=== PATIENT | female | born 1935 | race Caucasian/White ===

== ENCOUNTER 2017-06-14 11:38 | Observation (INO) | payer OTHER ==
--- NOTE | 2017-06-14 12:12 | PDOC ---
History of Present Illness - General History Source: Patient Exam Limitations: No Limitations - History of Present Illness Initial Comments: 06/14/17 12:33 81 y/o F presents with lightheadedness and hypertension for one day. 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 She states that she was in her home yesterday when she began to feel dizzy and elevated BP (158/78). She is currently complaining of feeling dizzy and weak. She states that she had a similar episode in February 2017 and was found to have low Hgb and required a transfusion and is contributing these current symptoms to her previous episode. This episode started gradually and there was no trauma or injury. She states that getting up worsens her symptoms and massages her neck makes it better. She did not take any medication. She denies any numbness, tingling, chest pain, SOB, abdominal pain, n/v/d. 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, causing Meylofibrosis - Psycho/Social/Smoking Cessation Hx Suicidal Ideation: No Smoking History: Never smoked Hx Alcohol Use: (former) <Richard Del Rio - Last Filed: 06/14/17 14:09> <Jerad Hauser - Last Filed: 06/14/17 14:50> - Past Medical History Allergies/Adverse Reactions: Allergies Allergy/AdvReac Type Severity Reaction Status Date / Time Penicillins Allergy Verified 06/14/17 11:46 Sulfa (Sulfonamide Allergy Verified 06/14/17 11:46 Antibiotics) Home Medications: Ambulatory Orders Danazol [Danocrine -] 200 mg PO DAILY 06/14/17 Hydroxyurea [Hydrea] 500 mg PO DAILY 06/14/17 Review of Systems - Review of Systems Constitutional: Yes: Weakness. No: Chills, Fever HEENTM: No: Blurred Vision, Double Vision Respiratory: No: Cough, Shortness of Breath Cardiac (ROS): No: Chest Pain, Palpitations ABD/GI: No: Nausea, Vomiting Musculoskeletal: No: Muscle Weakness Neurological: Yes: Dizziness. No: Headache, Numbness, Unsteady Gait All Other Systems: Reviewed and Negative <Richard Del Rio - Last Filed: 06/14/17 14:09> *Physical Exam - Vital Signs Last Vital Signs Temp Pulse Resp BP Pulse Ox 97.8 F 84 18 138/70 98 06/14/17 11:38 06/14/17 11:38 06/14/17 11:38 06/14/17 11:38 06/14/17 11:38 - Physical Exam General Appearance: Yes: Nourished, Appropriately Dressed. No: Apparent Distress HEENT: positive: EOMI, EMY, Normal ENT Inspection Neck: positive: Trachea midline, Supple Respiratory/Chest: positive: Lungs Clear, Normal Breath Sounds Cardiovascular: positive: Regular Rhythm, Regular Rate Vascular Pulses: Dorsalis-Pedis (R): 2+, Doralis-Pedis (L): 2+ Gastrointestinal/Abdominal: positive: Normal Bowel Sounds. negative: Tender, Distended, Guarding, Rebound Musculoskeletal: positive: Normal Inspection. negative: Decreased Range of Motion Extremity: positive: Normal Range of Motion. negative: Tender, Swelling, Calf Tenderness Integumentary: positive: Normal Color, Dry, Warm Neurologic: positive: dumper II-XII NML intact, Fully Oriented, Alert, Normal Mood/ Affect, Normal Response, Motor Strength 5/5 <Richard Del Rio - Last Filed: 06/14/17 14:09> - Vital Signs Last Vital Signs Temp Pulse Resp BP Pulse Ox 97.8 F 84 18 138/70 98 06/14/17 11:38 06/14/17 11:38 06/14/17 11:38 06/14/17 11:38 06/14/17 11:38 <Jerad Hauser - Last Filed: 06/14/17 14:50> ED Treatment Course - LABORATORY CBC & Chemistry Diagram: 06/14/17 12:30 06/14/17 12:30 <Richard Del Rio - Last Filed: 06/14/17 14:09> - LABORATORY CBC & Chemistry Diagram: 06/14/17 12:30 06/14/17 12:30 - ADDITIONAL ORDERS Additional order review: Laboratory Results 06/14/17 06/14/17 06/14/17 14:00 12:32 12:30 INR Sodium Potassium Chloride Carbon Dioxide Anion Gap BUN Creatinine Creat Clearance w eGFR Random Glucose Calcium Total Bilirubin AST ALT Alkaline Phosphatase Creatine Kinase 34 Troponin I < 0.03 L B-Natriuretic Peptide Total Protein Albumin Urine Color Yellow Urine Appearance Clear Urine pH 6.0 Ur Specific [place] 1.020 Urine Protein 1+ H Urine Glucose (UA) Negative Urine Ketones Negative Urine Blood Trace-intact H Urine Nitrite Negative Urine Bilirubin Negative Urine Urobilinogen 0.2 Ur Leukocyte Esterase Negative Crossmatch See Detail 06/14/17 06/14/17 06/14/17 12:30 12:30 12:30 INR 1.32 H Sodium 137 Potassium 4.5 Chloride 104 Carbon Dioxide 26 Anion Gap 7 L BUN 25 H Creatinine 0.6 Creat Clearance w eGFR > 60 Random Glucose 90 Calcium 9.3 Total Bilirubin 2.2 H AST 30 ALT 17 Alkaline Phosphatase 59 Creatine Kinase Troponin I B-Natriuretic Peptide 1096.53 H Total Protein 6.8 Albumin 4.1 Urine Color Urine Appearance Urine pH Ur Specific [place] Urine Protein Urine Glucose (UA) Urine Ketones Urine Blood Urine Nitrite Urine Bilirubin Urine Urobilinogen Ur Leukocyte Esterase Crossmatch 06/14/17 12:30 RBC 2.92 L MCV 87.6 MCHC 31.8 L RDW 30.6 H MPV 7.8 Neutrophils % Y Lymphocytes % Y <Jerad Hauser - Last Filed: 06/14/17 14:50> Medical Decision Making - Medical Decision Making 06/14/17 12:48 81 y/o F with lightheadedness and HTN x 1 day CBC, CMP, PT/PTT, UA EKG, CT Head, CXR r/o electrolytes imbalance, low Hgb, TIA, intracrainal bleed 06/14/17 12:52 <Richard Del Rio - Last Filed: 06/14/17 14:09> - Medical Decision Making 06/14/17 14:15 Per records from [facility] in [place](April 05, 2017): Dr Oren Orr (Phone #: [phone]) Pt is DIAMOND II positive ET (2006) 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 Current Rx: (1) Hydroxyurea 500 g/d- (Acceptable PC <600,000) (2) Danazol 200 mg (mu/day) anemia <9.0 gm/dl. She refused. Procrit or Epogen, or JAKAFI (oct. Hb). (3) Tolerates Hbz 8 gm, Hct >/=25% But may require RBC transf. Requires monthly CBC, CMP- F/u Jun 2017. <Jerad Hauser - Last Filed: 06/14/17 14:50> *DC/Admit/Observation/Transfer - Discharge Dispostion Admit: Yes <Richard Del Rio - Last Filed: 06/14/17 14:09> - Attestations Scribe Attestion: 06/14/17 14:16 Documentation prepared by Jerad Hauser, acting as emergency medical technician for Richard Del Rio DO. <Jerad Hauser - Last Filed: 06/14/17 14:50> Diagnosis at time of Disposition: Myeloproliferative disease, Dizziness, Lightheadedness Leukocytosis (leucocytosis) Qualifiers: Leukocytosis type: unspecified Qualified Code(s): D72.829 - Elevated white blood cell count, unspecified Profound anemia Qualifiers: Anemia type: unspecified type Qualified Code(s): D64.9 - Anemia, unspecified - Discharge Dispostion Condition at time of disposition: Stable
[2017-06-14 12:59] LABS: INR 1.32 (0.82-1.09); PROTHROMBIN TIME (PATIENT) 14.7 SEC (10.2-13.0)
[2017-06-14 13:01] LABS: MCH 27.8 pg (25.7-33.7); MCHC 31.8 g/dl (32.0-36.0); MEAN CELL VOLUME 87.6 fl (80-96); MEAN PLT VOLUME 7.8 fl (7.5-11.1); PLATELET COUNT 249 K/MM3 (134-434); RDW 30.6 % (11.6-15.6); WHITE BLOOD COUNT 22.5 K/mm3 (4.0-10.8)
[2017-06-14 13:28] LABS: ALBUMIN 4.1 g/dl (3.5-5.0); ALK PHOS 59 U/L (32-92); ANION GAP 7 (8-16); BILIRUBIN,TOTAL 2.2 mg/dl (0.2-1.0); CALCIUM 9.3 mg/dl (8.4-10.2); CO2 26 mmol/L (22-28); CREATININE 0.6 mg/dl (0.6-1.3); GLUCOSE,RANDOM 90 mg/dl (74-106); SGOT/AST 30 U/L (10-42); SGPT/ALT 17 U/L (10-40); TOT PROT 6.8 g/dl (6.4-8.3)
[2017-06-14 13:29] LABS: CPK 34 IU/L (26-192)
[2017-06-14 13:38] LABS: TROPONIN I (DFP) < 0.03 ng/ml (0.03-0.50)
[2017-06-14 14:09] LABS: URINE APPEARANCE Clear; URINE BILIRUBIN Negative (NEGATIVE); URINE GLUCOSE (UA) Negative (NEGATIVE); URINE KETONE Negative (NEGATIVE); URINE LEUK ESTERASE Negative (NEGATIVE); URINE NITRITE Negative (NEGATIVE); URINE UROBILINOGEN 0.2 (0.2-1.0)
[2017-06-14 14:13] LABS: URINE BLOOD Trace-intact (NEGATIVE); URINE COLOR YELLOW; URINE PROTEIN 1+ (NEGATIVE)
[2017-06-14 15:21] LABS: URINE AMORPHOUS SEDIMENT 1; URINE WBC 0-2 (3-5)
[2017-06-14 15:43] LABS: ANISOCYTOSIS 2+; HYPOCHROMIA 2+; POIKILOCYTOSIS 2+; POLYCHROMASIA 1+
[2017-06-14 15:44] LABS: MICROCYTOSIS 1+; OVALOCYTES 2+; PLATELET ESTIMATE ADEQUATE (NORMAL); SCHISTOCYTES OCC; TEAR DROP CELLS 2+
[2017-06-14 15:45] LABS: PLATELET COMMENT2 MOD LARGE PLTS
[2017-06-14 15:51] LABS: TARGET CELLS 1+
[2017-06-14 18:48] VITALS: BMI 21.2
[2017-06-14 21:54] LABS: URINE APPEARANCE Clear; URINE BILIRUBIN Negative (NEGATIVE); URINE BLOOD Negative (NEGATIVE); URINE GLUCOSE (UA) Negative (NEGATIVE); URINE KETONE Negative (NEGATIVE); URINE LEUK ESTERASE Negative (NEGATIVE); URINE NITRITE Negative (NEGATIVE); URINE PROTEIN Negative (NEGATIVE)
[2017-06-14 21:55] LABS: URINE COLOR YELLOW
--- NOTE | 2017-06-14 22:06 | HP ---
CHIEF COMPLAINT: lightheadedness PCP: In [facility]: Dr Oren Orr (Phone #: [phone]) HISTORY OF PRESENT ILLNESS: This is an 81 year old female with a past medical history of myelofibrosis (DIAMOND II mutation) who presented to the ED with lightheadedness since yesterday with elevated BP. She states that in the past when she felt this way, she needed a transfusion. ER course was notable for: (1) Hgb 8.1 (2) BUN 25 (3) CT head unremarkable Recent Travel: from [place] (where she lives) to here on 05/26/17 PAST MEDICAL HISTORY: myelofibrosis/DIAMOND II mutation PAST SURGICAL HISTORY: partial knee replacement tonsillectomy age 10 hysterectomy-fibroids Social History: Smoking: pt denies Alcohol: pt denies Drugs: pt denies Family History: Mom age 95, no medical problems dad age 62, cirrhosis due to ETOH no children Allergies Penicillins Allergy (Verified 06/14/17 11:46) Sulfa (Sulfonamide Antibiotics) Allergy (Verified 06/14/17 11:46) HOME MEDICATIONS: 3 Medication Instructions Recorded Danazol [Danocrine -] 200 mg PO DAILY 06/14/17 Hydroxyurea [Hydrea] 500 mg PO DAILY 06/14/17 ASA 81mg Folic acid REVIEW OF SYSTEMS CONSTITUTIONAL: Present: generalized weakness, malaise Absent: fever, chills, diaphoresis, loss of appetite, weight change HEENT: Absent: rhinorrhea, nasal congestion, throat pain, throat swelling, difficulty swallowing, mouth swelling, ear pain, eye pain, visual changes CARDIOVASCULAR: Absent: chest pain, syncope, palpitations, irregular heart rate, lightheadedness , peripheral edema RESPIRATORY: Absent: cough, shortness of breath, dyspnea with exertion, orthopnea, wheezing, stridor, hemoptysis GASTROINTESTINAL: Absent: abdominal pain, abdominal distension, nausea, vomiting, diarrhea, constipation, melena, hematochezia GENITOURINARY: Absent: dysuria, frequency, urgency, hesitancy, hematuria, flank pain, genital pain MUSCULOSKELETAL: Absent: myalgia, arthralgia, joint swelling, back pain, neck pain SKIN: Absent: rash, itching, pallor HEMATOLOGIC/IMMUNOLOGIC: Absent: easy bleeding, easy bruising, lymphadenopathy, frequent infections ENDOCRINE: Absent: unexplained weight gain, unexplained weight loss, heat intolerance, cold intolerance NEUROLOGIC: Present: dizziness Absent: headache, focal weakness or paresthesias, unsteady gait, seizure, mental status changes, bladder or bowel incontinence PSYCHIATRIC: Absent: anxiety, depression, suicidal or homicidal ideation, hallucinations. PHYSICAL EXAMINATION Vital Signs - 24 hr 3 06/14/17 06/14/17 06/14/17 17:30 18:06 18:42 Temperature 98.1 F 98.8 F 98.8 F Pulse Rate 78 78 Pulse Rate [ 98 H Left Apical] Respiratory 16 18 18 Rate Blood Pressure 115/42 115/42 Blood Pressure 132/65 [Right Arm] O2 Sat by Pulse 97 99 Oximetry (%) GENERAL: Awake, alert, and fully oriented, in no acute distress. HEAD: Normal with no signs of trauma. EYES: Pupils equal, round and reactive to light, extraocular movements intact, sclera anicteric, conjunctiva clear, slightly pale. No lid lag. EARS, NOSE, THROAT: Ears normal, nares patent, oropharynx clear without exudates. Moist mucous membranes. NECK: Normal range of motion, supple without lymphadenopathy, JVD, or masses. LUNGS: Breath sounds equal, clear to auscultation bilaterally. No wheezes, and no crackles. No accessory muscle use. HEART: Regular rate and rhythm, normal S1 and S2 without murmur, rub or gallop. ABDOMEN: Soft, nontender, not distended, normoactive bowel sounds, no guarding, no rebound, no masses. No hepatomegaly or splenomegaly. MUSCULOSKELETAL: Normal range of motion at all joints. No bony deformities or tenderness. No CVA tenderness. UPPER EXTREMITIES: 2+ pulses, warm, well-perfused. No cyanosis. No clubbing. No peripheral edema. LOWER EXTREMITIES: 2+ pulses, warm, well-perfused. No calf tenderness. No peripheral edema. NEUROLOGICAL: Cranial nerves II-XII intact. Normal speech. Normal gait. PSYCHIATRIC: Cooperative. Good eye contact. Appropriate mood and affect. SKIN: Warm, dry, normal turgor, no rashes or lesions noted, normal capillary refill. Laboratory Results - last 24 hr 3 06/14/17 06/14/17 06/14/17 06/14/17 12:30 12:30 12:30 12:57 WBC 22.5 H RBC 2.92 L Hgb 8.1 L Hct 25.6 L MCV 87.6 MCH 27.8 MCHC 31.8 L RDW 30.6 H Plt Count 249 MPV 7.8 Neutrophils % Y Lymphocytes % Y Differential Comment Slide scanned Platelet Estimate Adequate Platelet Comment Mod large plts RBC Morphology Y Polychromasia 1+ Hypochromic-Microcytic 2+ Poikilocytosis 2+ Basophilic Stippling 1+ Anisocytosis 2+ Microcytosis 1+ Target Cells 1+ Tear Drop Cells 2+ Ovalocytes 2+ Schistocytes Occ INR 1.32 H Sodium 137 Potassium 4.5 Chloride 104 Carbon Dioxide 26 Anion Gap 7 L BUN 25 H Creatinine 0.6 Creat Clearance w eGFR > 60 Random Glucose 90 Calcium 9.3 Total Bilirubin 2.2 H AST 30 ALT 17 Alkaline Phosphatase 59 LD Total 461 H Creatine Kinase 34 Troponin I < 0.03 L B-Natriuretic Peptide 1096.53 H Total Protein 6.8 Albumin 4.1 Urine Color Urine Appearance Urine pH Ur Specific [place] Urine Protein Urine Glucose (UA) Urine Ketones Urine Blood Urine Nitrite Urine Bilirubin Urine Urobilinogen Ur Leukocyte Esterase Urine RBC Urine WBC Ur Epithelial Cells Amorphous Sediment Blood Type O POSITIVE Antibody Screen Negative Crossmatch See Detail 3 06/14/17 06/14/17 06/14/17 18:30 21:00 22:00 WBC 23.8 H RBC 3.30 L Hgb 9.5 L D Hct 29.1 L MCV 88.3 MCH 28.7 MCHC 32.5 RDW 25.9 H Plt Count 256 MPV 8.1 Neutrophils % Lymphocytes % Differential Comment Platelet Estimate Platelet Comment RBC Morphology Polychromasia Hypochromic-Microcytic Poikilocytosis Basophilic Stippling Anisocytosis Microcytosis Target Cells Tear Drop Cells Ovalocytes Schistocytes INR Sodium Potassium Chloride Carbon Dioxide Anion Gap BUN Creatinine Creat Clearance w eGFR Random Glucose Calcium Total Bilirubin AST ALT Alkaline Phosphatase LD Total Creatine Kinase Troponin I 0.00 B-Natriuretic Peptide Total Protein Albumin Urine Color Yellow Urine Appearance Clear Urine pH 7.0 Ur Specific [place] 1.015 Urine Protein Negative Urine Glucose (UA) Negative Urine Ketones Negative Urine Blood Negative Urine Nitrite Negative Urine Bilirubin Negative Urine Urobilinogen 1.0 Ur Leukocyte Esterase Negative Urine RBC Urine WBC Ur Epithelial Cells Amorphous Sediment Blood Type Antibody Screen Crossmatch Radiology Results HEAD CT WITHOUT CONTRAST HISTORY PROVIDED: Dizziness TECHNIQUE: Sequential axial images were obtained from the base of the skull to the vertex. There is no evidence of acute intracranial hemorrhage, mass lesions or infarctions. There is a mild degree of diffuse cerebral atrophy with sulcal widening and ventricular dilatation. IMPRESSION: No evidence of acute intracranial pathology. Reported By: Luke Delacruz MD 06/14/17 1257 CHEST X-RAY PORTABLE* Clinical history: Dizziness. COMPARISON: None. An AP seated chest film shows cardiomegaly with left ventricular enlargement and unfolding of the aorta. There is no evidence of heart failure, acute infiltrate or pleural effusion seen. IMPRESSION: Cardiomegaly. No acute intrathoracic abnormality seen. Reported By: Daniel Hodge MD 06/14/17 1322 ECG NSR, rate 73 QTC 418 nonspecific T wave abnormality: T wave inversion lead 3, V3 ASSESSMENT/PLAN: 81yF with PMH myelofibrosis presented with lightheadedness and general malaise. She has been admitted to observation. Anemia - likley due to myelofibrosis - s/p 1uPRBC, repeat with improved Hgb Leukocytosis - Pt denies previous h/o of elevated WBC - unclear etiology: CXR without infiltrate, urine negative, afebrile - hematology consult. Myelofibrosis - pt states she is not taking Danazol as it made her feel worse and her MD in [place] is aware. - cont hydroxyurea. - pt states she is also on ASA and folic acid, will order same. elevated BNP/cardiomegaly - likely undiagnosed cardiomyopathy, consider echo vs outpt workup. No acute SOB DVT PPX - deferred as anticipated LOS is <48h and fully ambulatory FEN - defer IVF, tolerating po - BMP in am - regular diet as tolerated Dispo: Pt currently requires inpatient observation for management of her emergent condition, expected LOS less than 2 midnights. Visit type - Emergency Visit Emergency Visit: Yes ED Registration Date: 06/14/17 Care time: The patient presented to the Emergency Department on the above date and was hospitalized for further evaluation of their emergent condition. - New Patient This patient is new to me today: Yes Date on this admission: 06/14/17 - Critical Care Critical Care patient: No
--- NOTE | 2017-06-14 22:06 | HP ---
Admitting History and Physical - Smoking History Smoking history: Never smoked Have you smoked in the past 12 months: No - Alcohol/Substance Use Hx Alcohol Use: No (former) Home Medications - Allergies Allergies/Adverse Reactions: Allergies Allergy/AdvReac Type Severity Reaction Status Date / Time Penicillins Allergy Verified 06/14/17 11:46 Sulfa (Sulfonamide Allergy Verified 06/14/17 11:46 Antibiotics) - Home Medications Home Medications: Ambulatory Orders Danazol [Danocrine -] 200 mg PO DAILY 06/14/17 Hydroxyurea [Hydrea] 500 mg PO DAILY 06/14/17 Physical Examination Vital Signs: Vital Signs Temperature 98.8 F 06/14/17 18:42 Pulse Rate 78 06/14/17 18:42 Respiratory Rate 18 06/14/17 18:42 Blood Pressure 115/42 06/14/17 18:42 O2 Sat by Pulse Oximetry (%) 99 06/14/17 18:06
[2017-06-14 22:46] LABS: MCH 28.7 pg (25.7-33.7); MCHC 32.5 g/dl (32.0-36.0); MEAN CELL VOLUME 88.3 fl (80-96); MEAN PLT VOLUME 8.1 fl (7.5-11.1); RDW 25.9 % (11.6-15.6); WHITE BLOOD COUNT 23.8 K/mm3 (4.0-10.8)
[2017-06-14 22:52] LABS: PLATELET COUNT 256 K/MM3 (134-434)
[2017-06-15 08:13] LABS: ALBUMIN 4.2 g/dl (3.5-5.0); ALK PHOS 62 U/L (32-92); ANION GAP 8 (8-16); BILIRUBIN,TOTAL 3.3 mg/dl (0.2-1.0); CALCIUM 9.2 mg/dl (8.4-10.2); CO2 26 mmol/L (22-28); CREATININE 0.7 mg/dl (0.6-1.3); GLUCOSE,RANDOM 86 mg/dl (74-106); MAGNESIUM 2.3 mg/dL (1.8-2.4); PHOSPHOROUS 4.1 mg/dl (2.5-4.6); SGOT/AST 21 U/L (10-42); SGPT/ALT 18 U/L (10-40); TOT PROT 6.6 g/dl (6.4-8.3)
[2017-06-15 08:53] LABS: METAMYELOCYTE 2 % (0-2)
[2017-06-15 09:07] LABS: MCH 28.3 pg (25.7-33.7); MCHC 32.3 g/dl (32.0-36.0); MEAN CELL VOLUME 87.6 fl (80-96); MEAN PLT VOLUME 7.4 fl (7.5-11.1); PLATELET COUNT 233 K/MM3 (134-434); RDW 26.6 % (11.6-15.6); WHITE BLOOD COUNT 23.7 K/mm3 (4.0-10.8)
[2017-06-15] MEDS ORDERED: ASPIRIN COATED 81 MG TABLET.EC PO SCH (10:00)
[2017-06-15] MEDS ORDERED: DANAZOL 200 MG CAPSULE PO SCH (10:00)
[2017-06-15] MEDS ORDERED: HYDROXYUREA 500 MG CAPSULE PO SCH (10:00)
[2017-06-15] MEDS ORDERED: FOLIC ACID 1 MG TABLET (FP) PO SCH (10:00)
--- NOTE | 2017-06-15 10:39 | DS ---
Physical Exam: SUBJECTIVE: Patient seen and examined OBJECTIVE: Vital Signs Period Temp Pulse Resp BP Sys/Braga Pulse Ox Last 24 Hr 98.1 F-98.8 F 69-98 16-18 115-132/42-65 97-99 PHYSICAL EXAM GENERAL: The patient is awake, alert, and fully oriented, in no acute distress. HEAD: Normal with no signs of trauma. EYES: PERRL, extraocular movements intact, sclera anicteric, conjunctiva clear. ENT: Ears normal, nares patent, oropharynx clear without exudates, moist mucous membranes. NECK: Trachea midline, full range of motion, supple. LUNGS: Breath sounds equal, clear to auscultation bilaterally, no wheezes, no crackles, no accessory muscle use. HEART: Regular rate and rhythm, S1, S2 without murmur, rub or gallop. ABDOMEN: Soft, nontender, nondistended, normoactive bowel sounds, no guarding, no rebound, no hepatosplenomegaly, no masses. EXTREMITIES: 2+ pulses, warm, well-perfused, no edema. NEUROLOGICAL: Cranial nerves II through XII grossly intact. Normal speech, gait not observed. PSYCH: Normal mood, normal affect. SKIN: Warm, dry, normal turgor, no rashes or lesions noted. LABS Laboratory Results - last 24 hr 06/14/17 06/14/17 06/14/17 18:30 21:00 22:00 WBC 23.8 H RBC 3.30 L Hgb 9.5 L D Hct 29.1 L MCV 88.3 MCH 28.7 MCHC 32.5 RDW 25.9 H Plt Count 256 MPV 8.1 Neutrophils % Lymphocytes % Monocytes % Eosinophils % Basophils % Sodium Potassium Chloride Carbon Dioxide Anion Gap BUN Creatinine Creat Clearance w eGFR Random Glucose Calcium Phosphorus Magnesium Total Bilirubin AST ALT Alkaline Phosphatase Troponin I 0.00 Total Protein Albumin Urine Color Yellow Urine Appearance Clear Urine pH 7.0 Ur Specific [place] 1.015 Urine Protein Negative Urine Glucose (UA) Negative Urine Ketones Negative Urine Blood Negative Urine Nitrite Negative Urine Bilirubin Negative Urine Urobilinogen 1.0 Ur Leukocyte Esterase Negative 06/15/17 06/15/17 07:41 07:41 WBC 23.7 H RBC 3.54 L Hgb 10.0 L Hct 31.0 L MCV 87.6 MCH 28.3 MCHC 32.3 RDW 26.6 H Plt Count 233 MPV 7.4 L Neutrophils % Resaw Carriage Operator Lymphocytes % Resaw Carriage Operator Monocytes % [employer] Car[employer] Operator Eosinophils % [employer] Carriage Operator Basophils % [employer] Car[employer] Operator Sodium 139 Potassium 4.5 Chloride 105 Carbon Dioxide 26 Anion Gap 8 BUN 22 H Creatinine 0.7 Creat Clearance w eGFR > 60 Random Glucose 86 Calcium 9.2 Phosphorus 4.1 Magnesium 2.3 Total Bilirubin 3.3 H D AST 21 D ALT 18 Alkaline Phosphatase 62 Troponin I Total Protein 6.6 Albumin 4.2 Urine Color Urine Appearance Urine pH Ur Specific [place] Urine Protein Urine Glucose (UA) Urine Ketones Urine Blood Urine Nitrite Urine Bilirubin Urine Urobilinogen Ur Leukocyte Esterase HOSPITAL COURSE: Date of Admission:06/14/17 Date of Discharge: 06/15/17 Minutes to complete discharge: 45 Discharge Summary Reason For Visit: LEUKOCYTOSIS Current Active Problems Dizziness (Acute) Leukocytosis (leucocytosis) (Acute) Lightheadedness (Acute) Myeloproliferative disease (Acute) Profound anemia (Acute) Condition: Stable - Home Medications Comprehensive Discharge Medication List: Ambulatory Orders Danazol [Danocrine -] 200 mg PO DAILY 06/14/17 Hydroxyurea [Hydrea] 500 mg PO DAILY 06/14/17
[2017-06-15 12:34] VITALS: BP 125/59; PULSE 67; TEMP 98.7
--- NOTE | 2017-06-15 14:00 | EKG ---
Test Reason : Blood Pressure : / mmHG Vent. Rate : 073 BPM Atrial Rate : 073 BPM P-R Int : 148 ms QRS Dur : 084 ms QT Int : 380 ms P-R-T Axes : 058 012 034 degrees QTc Int : 418 ms POOR DATA QUALITY, INTERPRETATION MAY BE ADVERSELY AFFECTED NORMAL SINUS RHYTHM NONSPECIFIC T WAVE ABNORMALITY ABNORMAL ECG NO PREVIOUS ECGS AVAILABLE REPEAT EKG IF CLINICALLY INDICATED Confirmed by ONEAL KAMINSKI MD ([id number]) on 06/15/2017 2:00:18 PM Referred By: ZULEIKA Confirmed By:ONEAL KAMINSKI MD
== END 2017-06-15 12:10 | disposition home or self-care (01) ==
LOC: FER 11:38 → FM/S 16:55
PROVIDERS: ADMIT Internal Medicine; ATTEND Nurse Practitioner Family
PROC: 30233N1 Transfusion of Nonautologous Red Blood Cells into Peripheral Vein, Percutaneous Approach (ICD-10-PCS; principal; 2017-06-14)
DX: D47.1 Chronic myeloproliferative disease (principal); C94.6 Myelodysplastic disease, not elsewhere classified; R42 Dizziness and giddiness; D64.9 Anemia, unspecified; I51.7 Cardiomegaly; Z88.0 Allergy status to penicillin; Z88.2 Allergy status to sulfonamides; Z79.82 Long term (current) use of aspirin
CPT/HCPCS: 36415; 36430; 70450-TC; 71010-TC; 80053; 81003; 81015; 83615; 83735; 83880; 84100; 84484; 85025; 85610; 86850; 86900; 86901; 86922; 87040; 87086; 93005; 99285-25; G0378; J8999; P9038; P9058

== ENCOUNTER 2021-10-20 15:39 | Inpatient (IN) | payer OTHER ==
[2021-10-20] MEDS ORDERED: ACETAMINOPHEN 500 MG TABLET (FP) PO ONE (16:15)
[2021-10-20 16:51] LABS: ALBUMIN 3.9 g/dl (3.4-5.0); BILIRUBIN,TOTAL 1.2 mg/dl (0.2-1); CALCIUM 8.7 mg/dl (8.5-10); CREATININE 1.3 mg/dl (0.55-1.3); MAGNESIUM 2.3 mg/dL (1.8-2.4); PHOSPHOROUS 5.7 mg/dl (2.5-4.9); TOT PROT 6.7 g/dl (6.4-8.2)
[2021-10-20] MEDS ORDERED: ACETAMINOPHEN 325 MG TABLET (FP) ONE (17:02)
[2021-10-20 17:03] LABS: INR 1.32 (0.82-1.09); PROTHROMBIN TIME (PATIENT) 14.6 SEC (10.2-13.0)
[2021-10-20 17:10] LABS: EPITHELIAL CELLS FEW /hpf
[2021-10-20 18:42] LABS: HEMATOCRIT 20.8 % (32.4-45.2); MCH 24.7 pg (25.7-33.7); MEAN CELL VOLUME 85.4 fl (80-96); PLATELET COUNT 128 10^3/uL (134-434); RBC 2.43 M/mm3 (3.60-5.2); RDW 19.8 % (11.6-15.6)
[2021-10-20 18:51] LABS: N-TERMINAL BNP 714.4 pg/ml (5-450)
[2021-10-20 22:08] LABS: ANISOCYTOSIS 1+; MACROCYTOSIS 0; OVALOCYTE 1+; PLATELET ESTIMATE DECREASED
[2021-10-21 01:32] VITALS: BMI 17.4
[2021-10-21] MEDS ORDERED: ACETAMINOPHEN 500 MG TABLET (FP) PO PRN (01:39)
[2021-10-21] MEDS: LEVOTHYROXINE NA 25 MCG TABLET (FP) PO SCH (06:43)
[2021-10-21] MEDS: CHOLECALCIFEROL (VIT D3) 1,000 UNIT (25 MCG) TABLET PO SCH (09:37)
[2021-10-21] MEDS ORDERED: LATANOPROST 0.005% OPHTH SOLN 2.5ML BOTTLE OU SCH ×2 (10:00→22:00)
[2021-10-21] MEDS: LORATADINE 10 MG TABLET PO SCH (10:30)
[2021-10-21] MEDS: HYDROXYUREA 500 MG CAPSULE PO SCH (10:30)
[2021-10-21 11:54] LABS: CALCIUM 8.9 mg/dl (8.5-10); CREATININE 1.3 mg/dl (0.55-1.3)
[2021-10-21 12:46] LABS: HEMATOCRIT 26.1 % (32.4-45.2); HEMOGLOBIN 8.1 GM/dL (10.7-15.3); MCH 26.3 pg (25.7-33.7); MCHC 30.9 g/dl (32.0-36.0); MEAN CELL VOLUME 85.3 fl (80-96); MEAN PLT VOLUME 10.9 fl (7.5-11.1); PLATELET COUNT 96 10^3/uL (134-434); RBC 3.06 M/mm3 (3.60-5.2); RDW 17.4 % (11.6-15.6)
[2021-10-21 12:56] LABS: WHITE BLOOD COUNT 81.8 K/mm3 (4.0-10.0)
[2021-10-21] MEDS ORDERED: PT OWN MED DRAWER 7, Y5N ONE (13:05)
[2021-10-21 13:23] LABS: ANISOCYTOSIS 1+; PLATELET ESTIMATE DECREASED
[2021-10-21] MEDS: HEPARIN NA (PORCINE) 5,000 UNITS/ML 1ML VIAL SQ SCH (21:05)
[2021-10-21] MEDS ORDERED: MONTELUKAST NA 10 MG TABLET PO SCH (22:00)
[2021-10-22] MEDS: LEVOTHYROXINE NA 25 MCG TABLET (FP) PO SCH (06:25)
[2021-10-22] MEDS: LORATADINE 10 MG TABLET PO SCH ×2 (09:42→09:47)
[2021-10-22] MEDS: CHOLECALCIFEROL (VIT D3) 1,000 UNIT (25 MCG) TABLET PO SCH (09:42)
[2021-10-22] MEDS: HYDROXYUREA 500 MG CAPSULE PO SCH (09:42)
[2021-10-22] MEDS: HEPARIN NA (PORCINE) 5,000 UNITS/ML 1ML VIAL SQ SCH (09:42)
[2021-10-22 11:37] LABS: ALBUMIN 3.5 g/dl (3.4-5.0); BILIRUBIN,TOTAL 1.7 mg/dl (0.2-1); CREATININE 1.4 mg/dl (0.55-1.3); MAGNESIUM 1.9 mg/dL (1.8-2.4); TOT PROT 6.4 g/dl (6.4-8.2)
[2021-10-22 12:14] LABS: HEMOGLOBIN 8.9 GM/dL (10.7-15.3); MCHC 31.6 g/dl (32.0-36.0); MEAN CELL VOLUME 85.4 fl (80-96); MEAN PLT VOLUME 11.4 fl (7.5-11.1); PLATELET COUNT 119 10^3/uL (134-434); RBC 3.28 M/mm3 (3.60-5.2); RDW 17.7 % (11.6-15.6)
[2021-10-22 12:22] LABS: WHITE BLOOD COUNT 95.3 K/mm3 (4.0-10.0)
[2021-10-22 12:50] LABS: ANISOCYTOSIS 2+; MACROCYTOSIS 0; OVALOCYTE 1+; PLATELET ESTIMATE DECREASED; TARGET CELLS 1+
[2021-10-22 14:02] VITALS: BP 106/34; PULSE 94; TEMP 99.2
== END 2021-10-22 17:30 | disposition home or self-care (01) | DRG 694 ==
LOC: FER 15:39 → FM/S 22:07
PROVIDERS: ATTEND Nurse Practitioner Acute Care
PROC: 30233N1 Transfusion of Nonautologous Red Blood Cells into Peripheral Vein, Percutaneous Approach (ICD-10-PCS; principal; 2021-10-20)
DX: D47.1 Chronic myeloproliferative disease (principal); E43 Unspecified severe protein-calorie malnutrition; R64 Cachexia; S46.001A Unspecified injury of muscle(s) and tendon(s) of the rotator cuff of right shoulder, initial encounter; E03.9 Hypothyroidism, unspecified; R29.6 Repeated falls; D69.6 Thrombocytopenia, unspecified; Z68.1 Body mass index [BMI] 19.9 or less, adult; M75.102 Unspecified rotator cuff tear or rupture of left shoulder, not specified as traumatic; W19.XXXA Unspecified fall, initial encounter; Y93.9 Activity, unspecified; Y92.009 Unspecified place in unspecified non-institutional (private) residence as the place of occurrence of the external cause; Y99.8 Other external cause status
CPT/HCPCS: 36415; 36430; 70450-TC; 71046-TC-FY; 71260-TC; 72125-TC; 72128-TC; 72131-TC; 73030-TC-RT-FY; 74177-TC; 80048; 80053; 81003; 81015; 82550; 83735; 83880; 84100; 84443; 84484; 85025; 85610; 85730; 86850; 86900; 86901; 86922; 93005; 97116-GP; 97162-GP; 99285-25; C9803; J1644; J8999; P9058; Q9967; U0003; U0005

== ENCOUNTER 2021-11-28 13:20 | Observation (INO) | payer OTHER ==
[2021-11-28 14:09] VITALS: BMI 17.9
[2021-11-28 15:10] LABS: ALBUMIN 3.8 g/dl (3.4-5.0); BILIRUBIN,TOTAL 1.8 mg/dl (0.2-1); CREATININE 0.8 mg/dl (0.55-1.3); TOT PROT 6.3 g/dl (6.4-8.2)
[2021-11-28 15:14] LABS: ACTIVATED PTT 27.8 SECONDS (25.2-36.5)
[2021-11-28 15:18] LABS: INR 1.3 (0.83-1.09); PROTHROMBIN TIME (PATIENT) 14.4 SEC (9.7-13.0)
[2021-11-28 16:47] LABS: BASO % 1.2 % (0-2.0); EOS % 1.6 % (0-4.5); HEMATOCRIT 19.3 % (32.4-45.2); LYMPH % 10.2 % (8-40); MCH 24.7 pg (25.7-33.7); MCHC 26.7 g/dl (32.0-36.0); MEAN CELL VOLUME 92.4 fl (80-96); MEAN PLT VOLUME 10.6 fl (7.5-11.1); MONO % 5.5 % (3.8-10.2); NEUT % 81.5 % (42.8-82.8); PLATELET COUNT 148 10^3/uL (134-434); RBC 2.08 M/mm3 (3.60-5.2); RDW 23.7 % (11.6-15.6)
[2021-11-28 16:55] LABS: HEMOGLOBIN 5.1 GM/dL (10.7-15.3); WHITE BLOOD COUNT 114.4 K/mm3 (4.0-10.0)
[2021-11-28 17:26] LABS: ANISOCYTOSIS 3+; MACROCYTOSIS 0; PLATELET ESTIMATE DECREASED; TARGET CELLS 1+; TEAR DROP CELLS 1+
[2021-11-29] MEDS: LEVOTHYROXINE NA 25 MCG TABLET (FP) PO SCH (06:26)
[2021-11-29 08:34] LABS: ALBUMIN 3.5 g/dl (3.4-5.0); BILIRUBIN,TOTAL 1.9 mg/dl (0.2-1); CALCIUM 8.5 mg/dl (8.5-10); TOT PROT 5.8 g/dl (6.4-8.2)
[2021-11-29 09:42] LABS: HEMATOCRIT 25.8 % (32.4-45.2); HEMOGLOBIN 7.8 GM/dL (10.7-15.3); MCH 26.6 pg (25.7-33.7); MCHC 30.3 g/dl (32.0-36.0); MEAN CELL VOLUME 87.8 fl (80-96); MEAN PLT VOLUME 10.6 fl (7.5-11.1); PLATELET COUNT 132 10^3/uL (134-434); RBC 2.94 M/mm3 (3.60-5.2); RDW 17.8 % (11.6-15.6)
[2021-11-29] MEDS: HYDROXYUREA 500 MG CAPSULE PO SCH (09:42)
[2021-11-29] MEDS: LORATADINE 10 MG TABLET PO SCH (09:42)
[2021-11-29] MEDS ORDERED: FUROSEMIDE 40 MG/4 ML INJECTABLE VIAL IVPUSH ONE (10:12)
[2021-11-29 10:39] LABS: WHITE BLOOD COUNT 98.4 K/mm3 (4.0-10.0)
[2021-11-29 11:59] LABS: ANISOCYTOSIS 2+; MACROCYTOSIS 0; OVALOCYTE 2+; PLATELET ESTIMATE DECREASED; TEAR DROP CELLS 2+; TOXIC GRANULATION 2+
[2021-11-29] MEDS ORDERED: ACETAMINOPHEN 325 MG TABLET (FP) PO PRN (14:12)
[2021-11-29] MEDS ORDERED: DEXTROSE 5%-WATER 100 ML IVPB ONE ×2 (16:07→21:15)
[2021-11-29] MEDS ORDERED: DOXYCYCLINE HYCLATE 100 MG VIAL ONE ×2 (16:07→21:14)
[2021-11-29] MEDS: DOXYCYCLINE INJECTION 100 MG in DEXTROSE 5%-WATER 100 ML IVPB SCH ×2 (16:17→21:28)
[2021-11-29 18:11] LABS: EPITHELIAL CELLS FEW /hpf
[2021-11-30] MEDS: LEVOTHYROXINE NA 25 MCG TABLET (FP) PO SCH (06:11)
[2021-11-30 08:23] LABS: CALCIUM 8.7 mg/dl (8.5-10)
[2021-11-30] MEDS ORDERED: DOXYCYCLINE HYCLATE 100 MG VIAL ONE ×2 (09:04→21:11)
[2021-11-30] MEDS ORDERED: DEXTROSE 5%-WATER 100 ML IVPB ONE ×2 (09:04→21:11)
[2021-11-30] MEDS: HYDROXYUREA 500 MG CAPSULE PO SCH (09:13)
[2021-11-30] MEDS: LORATADINE 10 MG TABLET PO SCH (09:14)
[2021-11-30] MEDS: DOXYCYCLINE INJECTION 100 MG in DEXTROSE 5%-WATER 100 ML IVPB SCH ×2 (09:14→21:14)
[2021-11-30 11:12] LABS: HEMATOCRIT 27.6 % (32.4-45.2); HEMOGLOBIN 7.9 GM/dL (10.7-15.3); MCH 26.1 pg (25.7-33.7); MCHC 28.8 g/dl (32.0-36.0); MEAN CELL VOLUME 90.6 fl (80-96); MEAN PLT VOLUME 11.1 fl (7.5-11.1); PLATELET COUNT 145 10^3/uL (134-434); RBC 3.04 M/mm3 (3.60-5.2); RDW 19.2 % (11.6-15.6)
[2021-11-30 11:31] LABS: WHITE BLOOD COUNT 97.3 K/mm3 (4.0-10.0)
[2021-11-30 12:23] LABS: ANISOCYTOSIS 1+; MACROCYTOSIS 0; OVALOCYTE 1+; PLATELET ESTIMATE DECREASED; TARGET CELLS 1+; TEAR DROP CELLS 1+
[2021-12-01] MEDS: LEVOTHYROXINE NA 25 MCG TABLET (FP) PO SCH (06:15)
[2021-12-01 09:29] LABS: HEMOGLOBIN 7.8 GM/dL (10.7-15.3); MCH 26.3 pg (25.7-33.7); MCHC 28.9 g/dl (32.0-36.0); MEAN PLT VOLUME 10.7 fl (7.5-11.1); PLATELET COUNT 152 10^3/uL (134-434); RBC 2.97 M/mm3 (3.60-5.2)
[2021-12-01] MEDS ORDERED: DOXYCYCLINE HYCLATE 100 MG VIAL ONE (09:38)
[2021-12-01] MEDS ORDERED: DEXTROSE 5%-WATER 100 ML IVPB ONE (09:39)
[2021-12-01 09:49] VITALS: BP 130/43; PULSE 102; TEMP 98.2
[2021-12-01 09:49] LABS: WHITE BLOOD COUNT 86.8 K/mm3 (4.0-10.0)
[2021-12-01] MEDS: HYDROXYUREA 500 MG CAPSULE PO SCH (09:50)
[2021-12-01] MEDS: LORATADINE 10 MG TABLET PO SCH (09:52)
[2021-12-01] MEDS: DOXYCYCLINE INJECTION 100 MG in DEXTROSE 5%-WATER 100 ML IVPB SCH (09:52)
[2021-12-01 12:27] LABS: ANISOCYTOSIS 1+; MACROCYTOSIS 0; PLATELET ESTIMATE NORMAL; TARGET CELLS 1+
== END 2021-12-01 13:27 | disposition home or self-care (01) ==
LOC: FER 13:20 → INTOOBSV 17:18 → FM/S 17:18 → UNDOADMIN 22:08 → FM/S 22:08
PROVIDERS: ADMIT Internal Medicine; ATTEND Nurse Practitioner Acute Care
PROC: 30233N1 Transfusion of Nonautologous Red Blood Cells into Peripheral Vein, Percutaneous Approach (ICD-10-PCS; principal; 2021-11-28)
PROC: 3E03329 Introduction of Other Anti-infective into Peripheral Vein, Percutaneous Approach (ICD-10-PCS; 2021-11-28)
PROC: 3E033GC Introduction of Other Therapeutic Substance into Peripheral Vein, Percutaneous Approach (ICD-10-PCS; 2021-11-28)
DX: D64.9 Anemia, unspecified (principal); D75.81 Myelofibrosis; R42 Dizziness and giddiness; M79.89 Other specified soft tissue disorders; D72.829 Elevated white blood cell count, unspecified; E03.9 Hypothyroidism, unspecified
CPT/HCPCS: 36430; 96365; 96375; P9021; 36415; 71046-TC-FY; 80048; 80053; 81003; 81015; 82248; 82550; 82607; 82746; 83010; 84484; 85025; 85610; 85730; 86850; 86900; 86901; 86922; 87040; 93005; 93971-TC; 99285-25; C9803; G0378; J8999; P9058; U0003; U0005

== ENCOUNTER 2021-12-26 11:55 | Observation (INO) | payer OTHER ==
[2021-12-26 12:53] LABS: BILIRUBIN,TOTAL 1.2 mg/dl (0.2-1); CALCIUM 9.1 mg/dl (8.5-10); CREATININE 1.2 mg/dl (0.55-1.3); TOT PROT 6.8 g/dl (6.4-8.2)
[2021-12-26 13:22] LABS: INR 1.31 (0.83-1.09); PROTHROMBIN TIME (PATIENT) 15.1 SEC (9.7-13.0)
[2021-12-26 13:24] LABS: ACTIVATED PTT 32.8 SECONDS (25.2-36.5)
[2021-12-26 13:38] LABS: HEMATOCRIT 19.1 % (32.4-45.2); MCH 25.1 pg (25.7-33.7); MCHC 29.1 g/dl (32.0-36.0); MEAN CELL VOLUME 86.1 fl (80-96); MEAN PLT VOLUME 9.2 fl (7.5-11.1); PLATELET COUNT 97 10^3/uL (134-434); RBC 2.22 M/mm3 (3.60-5.2)
[2021-12-26 14:10] LABS: HEMOGLOBIN 5.6 GM/dL (10.7-15.3)
[2021-12-26 15:56] LABS: ANISOCYTOSIS 3+; MACROCYTOSIS 0; PLATELET ESTIMATE DECREASED; TARGET CELLS 1+; TEAR DROP CELLS 2+
[2021-12-26 17:35] VITALS: BMI 18.0
[2021-12-26] MEDS ORDERED: FUROSEMIDE 40 MG/4 ML INJECTABLE VIAL IVPUSH ONE (18:00)
[2021-12-26] MEDS: HEPARIN NA (PORCINE) 5,000 UNITS/ML 1ML VIAL SQ SCH (21:51)
[2021-12-26] MEDS ORDERED: MONTELUKAST NA 10 MG TABLET PO SCH (22:00)
[2021-12-26] MEDS ORDERED: LATANOPROST 0.005% OPHTH SOLN 2.5ML BOTTLE OU SCH ×2 (22:00)
[2021-12-27] MEDS ORDERED: LEVOTHYROXINE NA 25 MCG TABLET (FP) PO SCH (07:00)
[2021-12-27 08:21] LABS: ALBUMIN 3.9 g/dl (3.4-5.0); BILIRUBIN,TOTAL 1.6 mg/dl (0.2-1); CALCIUM 9.1 mg/dl (8.5-10); CREATININE 1.2 mg/dl (0.55-1.3); MAGNESIUM 2.1 mg/dL (1.8-2.4); TOT PROT 6.6 g/dl (6.4-8.2)
[2021-12-27] MEDS: HEPARIN NA (PORCINE) 5,000 UNITS/ML 1ML VIAL SQ SCH (09:25)
[2021-12-27] MEDS ORDERED: HYDROXYUREA 500 MG CAPSULE PO SCH (10:00)
[2021-12-27 11:23] LABS: HEMATOCRIT 27.7 % (32.4-45.2); HEMOGLOBIN 8.5 GM/dL (10.7-15.3); MCH 26.3 pg (25.7-33.7); MCHC 30.5 g/dl (32.0-36.0); MEAN CELL VOLUME 86.3 fl (80-96); MEAN PLT VOLUME 9.1 fl (7.5-11.1); PLATELET COUNT 82 10^3/uL (134-434); RBC 3.21 M/mm3 (3.60-5.2); RDW 18.7 % (11.6-15.6)
[2021-12-27 11:28] LABS: WHITE BLOOD COUNT 78.6 K/mm3 (4.0-10.0)
[2021-12-27 12:54] LABS: ANISOCYTOSIS 2+; MACROCYTOSIS 0; OVALOCYTE 1+; PLATELET ESTIMATE DECREASED; TARGET CELLS 1+
[2021-12-27 13:25] VITALS: BP 123/53; PULSE 93; TEMP 98.2
== END 2021-12-27 13:21 | disposition home or self-care (01) ==
LOC: FER 11:55 → FM/S 12:08
PROVIDERS: ADMIT Internal Medicine; ATTEND Nurse Practitioner Family
PROC: 3E033GC Introduction of Other Therapeutic Substance into Peripheral Vein, Percutaneous Approach (ICD-10-PCS; principal; 2021-12-26)
PROC: 3E023GC Introduction of Other Therapeutic Substance into Muscle, Percutaneous Approach (ICD-10-PCS; 2021-12-26)
PROC: 30233N1 Transfusion of Nonautologous Red Blood Cells into Peripheral Vein, Percutaneous Approach (ICD-10-PCS; 2021-12-26)
DX: D50.9 Iron deficiency anemia, unspecified (principal); D75.81 Myelofibrosis; E03.9 Hypothyroidism, unspecified; R42 Dizziness and giddiness; K74.60 Unspecified cirrhosis of liver; Z88.0 Allergy status to penicillin; Z88.2 Allergy status to sulfonamides; Z91.018 Allergy to other foods
CPT/HCPCS: 36415; 36430; 80053; 83735; 84484; 85025; 85610; 85730; 86850; 86900; 86901; 86922; 93005; 96372; 96374; 99285-25; C9803; G0378; J1644; J8999; P9058; U0003; U0005